=== PATIENT | male | born 1990 | race Caucasian/White ===

== ENCOUNTER 2017-10-31 19:01 | Emergency (ER) | payer OTHER ==
[~2017-10-31] VITALS: Ht 190.5 cm; Wt 122.5 kg
[~2017-10-31 19:01] MED LIST: CIPR500 PO; CRUTCH2 XX; IBUP800 PO; Norco 5-325 Ta1 EACH PO; Omeprazole20 M1 PO
[2017-10-31] MEDS ORDERED: Prilosec Otc20 MG (19:40)
== END 2017-10-31 22:15 | disposition home or self-care (01) ==
LOC: ER 19:01
DX: T78.3XXA Angioneurotic edema, initial encounter (principal); L27.2 Dermatitis due to ingested food
CPT/HCPCS: 96372; 99283; J1200

== ENCOUNTER 2021-02-03 10:58 | Emergency (ER) | payer OTHER ==
[~2021-02-03] VITALS: Ht 190.5 cm; Wt 138.3 kg
[~2021-02-03 10:58] MED LIST changes: +Prilosec Otc20 MG
[2021-02-03] MEDS ORDERED: PROZAC40 MG (11:47)
[2021-02-03] MEDS ORDERED: SULTRIDS PO (13:46)
== END 2021-02-03 13:53 | disposition home or self-care (01) ==
LOC: ER 10:58
DX: L02.31 Cutaneous abscess of buttock (principal); K21.9 Gastro-esophageal reflux disease without esophagitis; Z79.899 Other long term (current) drug therapy
CPT/HCPCS: 10060; 99282-25